=== PATIENT | male | born 1975 | race Caucasian/White ===

== ENCOUNTER 2020-08-18 15:48 | Outpatient (CLI) | payer OTHER, SELFPAY ==
[2020-08-18 16:12] LABS: Add Urine Microscopic? NO; Appearance Urine Clear (Clear); Basophils Absolute Auto 0.07 K/mm3 (0.00-0.10); Basophils Percent Auto 1.2 % (0.0-1.0); Bilirubin Urine Negative (Negative); Blood Urine Negative (Negative); Color Urine Yellow (Yellow); Eosinophils Absolute Auto 0.14 K/mm3 (0.02-0.50); Eosinophils Percent Auto 2.4 % (1.0-6.0); Glucose Urine UA Negative (Negative); Hematocrit 42.6 % (40.0-54.0); Hemoglobin 14.7 g/dL (14.0-18.0); Immature Granulocyte Absolute 0.02 K/mm3 (0.00-0.00); Immature Granulocyte Percent A 0.3 % (0.0-0.0); Ketones Urine Negative (Negative); Leukocyte Esterase Ur Negative (Negative); Lymphocytes Absolute Auto 1.87 K/mm3 (1.10-4.50); Lymphocytes Percent Auto 32.3 % (18.0-42.0); Mean Corpuscular HGB Conc 34.5 g/dL (32.0-36.0); Mean Corpuscular Hemoglobin 31.1 pg (27.0-31.0); Mean Corpuscular Volume 90.3 fL (78.0-102.0); Mean Platelet Volume 9.2 fl (8.7-11.0); Monocytes Absolute Auto 0.58 K/mm3 (0.10-0.90); Neutrophils Absolute Auto 3.1 K/mm3 (1.7-7.2); Neutrophils Percent Auto 53.8 % (50.0-70.0); Nitrate Urine Negative (Negative); Platelet Count Result 202 K/mm3 (150-420); Protein Urine Negative (Negative); Red Blood Count 4.72 M/mm3 (4.70-6.10); Red Cell Distribution Width 13.2 % (11.6-14.4); Specific Grav Ur 1.025 (1.010-1.020); Urobilinogen Urine 0.2 mg/dL (0.2-1.0); White Blood Count 5.8 K/mm3 (4.8-10.8)
[2020-08-18 17:40] LABS: Alanine Aminotransferase 24 U/L (16-63); Albumin Level 4.2 g/dL (3.4-5.0); Alkaline Phosphatase 57 U/L (46-116); Anion Gap 8 mmol/L (8-16); Aspartate Amino Transferase 30 U/L (15-37); Blood Urea Nitrogen 24 mg/dL (7-18); Calcium 8.8 mg/dL (8.5-10.1); Carbon Dioxide 28 mmol/L (21-32); Chloride 104 mmol/L (98-108); Cholesterol 199 mg/dL (0-200); Estimated Glomerular Filt Rate > 60; Glucose 80 mg/dL (70-99); HDL Direct 81 mg/dL (40-60); LDL Cholesterol Calculated 94 mg/dL (<130); Osmolality Calculated 293 mOsm/kg (285-295); Potassium 4.2 mmol/L (3.5-5.1); Sodium 140 mmol/L (136-145); Thyroid Stimulating Hormone 1.38 uIU/mL (0.36-3.74); Total Protein 7.3 g/dL (6.4-8.2); Triglycerides 122 mg/dL (0-150)
[2020-08-23 06:59] LABS: LH 2.9 mIU/mL (1.5-9.3)
[2020-08-23 14:59] LABS: Testosterone Free 57.2 pg/mL (35.0-155.0); Testosterone Total 318 ng/dL (250-1100)
== END 2020-08-18 15:49 | disposition home or self-care (01) ==
PROVIDERS: PCP Internal Medicine; Visit Provider Internal Medicine
DX: Z00.00 Encounter for general adult medical examination without abnormal findings (principal); R53.83 Other fatigue
CPT/HCPCS: 36415; 80053; 80061; 81003; 83002; 84402; 84403; 84443; 85025

== ENCOUNTER 2021-03-26 06:37 | Emergency (ER) | payer OTHER, SELFPAY ==
--- NOTE | ~2021-03-26 | CT_ITS ---
EXAMINATION: CT diagnostic chest wo con EXAM DATE: 03/26/2021 07:59 INDICATION: fall, back and rib pain, left leg numbness fall 3 days ago from 5ft, landed on back and L side-pain SOB . TECHNIQUE: Spiral CT of the chest without contrast. Axial, coronal and sagittal images of the chest were reviewed. Coronal maximum intensity pixel images of chest reviewed. The dose-length product ( DLP) for this examination was 526.87 mGy-cm. The exposure was tailored according to patient size (au to mA exposure control), and iterative reconstruction (ASIR) was used as additional dose reduction te chnique. There is no prior study for comparison. FINDINGS: There are acute nondisplaced left 8th and 9th rib fractures posteriorly. There is small lef t knee joint effusion. There is adjacent subsegmental atelectasis. Trace right pleural effusion. Tra cheobronchial tree is patent. There is no mediastinal, hilar or axillary lymphadenopathy. There i s no pneumothorax. Heart normal in size. No evidence of coronary arterial calcification. Fluid d ensity lesion superior pole right kidney measuring 2.5 cm, probably a cyst. There is mild thoracic s pondylosis without osteoblastic or osteolytic lesions identified. IMPRESSION: 1. Acute left 8th and 9th nondisplaced rib fractures. 2. Small left pleural effusion, adjacent subsegmental atelectasis. Reviewed, dictated and finalized at location D. LTY CHAIN MAKER
--- NOTE | ~2021-03-26 | CT_ITS ---
EXAMINATION: CT lumbar spine wo [facility] EXAM DATE: 03/26/2021 07:59 INDICATION: fall, back pain, left leg numbness fall 3 days ago from 5ft, landed on back and L side-pa in. TECHNIQUE: Spiral CT of the lumbar spine was performed without contrast. Axial, coronal and sagittal images lumbar spine were reviewed. The dose-length product (DLP) for this examination was 526.87 mG y-cm. The exposure was tailored according to patient size (auto mA exposure control), and iterative reconstruction (ASIR) was used as additional dose reduction technique. FINDINGS: There is moderate right neural foraminal stenosis at L4-5, otherwise only mild lumbar disc disease and arthropathy. There is no evidence of acute lumbar fracture. There is no disc space wide titus or traumatic vertebral body subluxation suspected. Paraspinal soft tissue is unremarkable. A de tailed level by level evaluation of spondylosis can be added as addendum if requested. IMPRESSION: 1. No acute lumbar findings. 2. L4-5 moderate right neural foraminal stenosis, less spondylosis other levels. Reviewed, dictated and finalized at location D. ENT ACCESS SPECIALIST IMPRESSION: 1. No acute lumbar findings. 2. L4-5 moderate right neural foraminal stenosis, less spondylosis other level s.
[2021-03-26 06:45] VITALS: BP 124/100; PULSE 76; RESP 18; TEMP 36.4; O2SAT 99
--- NOTE | 2021-03-26 07:03 | PC.NURSE ---
Report given to Mili Omalley
[2021-03-26 07:11] VITALS: BP 133/93
--- NOTE | 2021-03-26 07:18 | ED.FALL ---
HPI - Fall General Chief Complaint: Back Pain/Injury Stated Complaint: FELL THURSDAY BACK PAIN Time Seen by Provider: 03/26/21 07:18 Source: patient Mode of arrival: ambulatory Limitations: no limitations History of Present Illness HPI Narrative: 45-year-old man comes in today complaining of left-sided rib and back pain and numbness in his left leg that started 3 days ago after he fell off a 5 ft scaffolding onto his back. Patient states that he did not his head or lose consciousness nor did he have any symptoms such as lightheadedness, chest pain, weakness or dizziness prior to his fall. He denies previous back pain issues. he denies hemoptysis, productive cough, shortness of breath. He states he feels like some things grinding in his back when he moves. complaint: fall Onset (ago): day(s) (3) Fall from: from height (distance) (5 feet) Place fall occurred: other ( Outdoors) Loss of consciousness: none Prolonged down time: no Symptoms prior to fall: none Context: tripped/slipped Location of injury: chest and back Severity: severe Quality: sharp and aching Associated symptoms (after fall): denies Related Data Home Medications Medication Instructions Recorded Confirmed gabapentin 100 mg PO TID 03/26/21 03/26/21 Allergies Allergy/AdvReac Type Severity Reaction Status Date / Time No Known Allergies Allergy Verified 03/26/21 06:52 Review of Systems Review of Systems: All systems reviewed & are unremarkable except as noted in HPI and below ENT: Denies nasal congestion and Denies sore throat Cardiovascular: Cardiovascular: Reports chest pain and Denies radiating jaw, neck or arm pain Respiratory: Respiratory: Reports cough ( Recent respiratory infection with lingering cough), Denies dyspnea and Denies wheezing Gastrointestinal: Gastrointestinal: Denies abdominal pain, Denies nausea and Denies vomiting Genitourinary: Genitourinary: Denies hematuria and Denies urinary incontinence Musculoskeletal: Musculoskeletal: Reports back pain, Denies arthralgias and Denies joint swelling Integumentary/Breasts: Skin/Breast: Denies pruritus, Denies erythema and Denies rash PMFSH Social History Social History (Updated 03/26/21 @ 07:36 by Jhony Mccracken MD) Tobacco type: smokeless tobacco Substance use: never Exam Const: General: healthy appearing and alert Orientation/consciousness: patient oriented x3 Limitations: no limitations Other: moderate acute distress. Neck: Neck: normal visual inspection Other: No tenderness. Normal range of motion. Resp: Effort & Inspection: normal respiratory effort and not labored Auscultation: clear to auscultation bilaterally, no rales, no rhonchi, no wheezes and diminished lung sounds on the left in the upper lung ng Cardio: Rate: regular rate Rhythm: regular rhythm Back/Spine/Pelvis: Other: Tenderness to palpation of the left paraspinal muscles in the lower thoracic spine and of the posterior and lower ribs on the left. no crepitus. Skin: General skin exam: normal color, no jaundice and no pallor Rashes: no rashes Neuro: General: patient oriented x3, moves all extremities, no focal motor deficits and CN's II-XI intact bilaterally Speech: normal speech Gait exam (Neuro): Normal gait present Other: normal strength in the lower extremities without decrease in sensation. DTRs at the calcaneal and patellar tendons are 1+ and symmetric. Extrem: General: normal to inspection and no clubbing, cyanosis or edema Psych: Appearance: grossly normal and well kempt Mental Status: mental status grossly normal Affect: normal affect Attitude: cooperative Thought content: Yes Normal thought content present Course Vital Signs Vital signs: Vital Signs Temperature 36.4 C 03/26/21 06:45 Pulse Rate 76 03/26/21 06:45 Respiratory Rate 18 03/26/21 06:45 Blood Pressure 124/100 H 03/26/21 06:45 Pulse Oximetry 99 03/26/21 06:45 Temperature 36.4 C
[2021-03-26 07:36] LABS: Add Urine Microscopic? NO; Appearance Urine Clear (Clear); Bilirubin Urine Negative (Negative); Blood Urine Negative (Negative); Color Urine Light Yellow (Yellow); Glucose Urine UA Negative (Negative); Ketones Urine Negative (Negative); Leukocyte Esterase Ur Negative (Negative); Nitrate Urine Negative (Negative); Protein Urine Negative (Negative); Specific Grav Ur 1.015 (1.010-1.020); Urobilinogen Urine 0.2 mg/dL (0.2-1.0)
[2021-03-26 08:36] VITALS: BP 133/93; PULSE 76; RESP 18; TEMP 36.4; O2SAT 98
== END 2021-03-26 08:37 | disposition home or self-care (01) ==
PROVIDERS: Emergency Provider Emergency Medicine
DX: S22.42XA Multiple fractures of ribs, left side, initial encounter for closed fracture (principal); W12.XXXA Fall on and from scaffolding, initial encounter
CPT/HCPCS: 71250; 72131; 81003; 99283; 99284

== ENCOUNTER 2021-04-22 17:53 | Outpatient (NON) | payer OTHER, SELFPAY | END 2021-04-22 17:54 | disposition home or self-care (01) | LOC: CHSLAB 18:00 | DX: Z98.52 Vasectomy status (principal) | CPT/HCPCS: 89321 ==

== ENCOUNTER 2022-04-01 16:15 | Outpatient (CLI) | payer OTHER, SELFPAY ==
--- NOTE | ~2022-04-01 | XR_ITS ---
XR hip RT min 2V DATE: 04/01/2022 17:01 INDICATION: Right hip pain radiating down leg TECHNIQUE: AP and lateral views of right hip COMPARISON: None FINDINGS: No fracture or dislocation, avascular necrosis or bone destruction of the right hip. Right hip joint space is well preserved. The pubic symphysis and right sacroiliac joint are intact. IMPRESSION: Negative Reviewed, dictated and finalized at location A. CTOR OF CAMPUS RECREATION IMPRESSION: Negative
--- NOTE | ~2022-04-01 | XR_ITS ---
XR lumbar spine 2-3V DATE: 04/01/2022 17:01 INDICATION: Right gluteal pain, lower lumbar pain for 3 weeks TECHNIQUE: AP, lateral and coned lateral lumbosacral views COMPARISON: 03/26/2021 CT lumbar spine FINDINGS: There is mild levoscoliosis of the thoracolumbar spine. There is mild degenerative spurring of the lumbar vertebral bodies the lumbar and lumbosacral intersp aces are relatively preserved. No fracture or bone destruction is evident. T12-L5 pedicles are intact. No fracture or bone destructi on or spondylolisthesis. The sacroiliac joints are intact. IMPRESSION: Mild thoracolumbar levoscoliosis Mild degenerative spurring of the lumbar spine Reviewed, dictated and finalized at location A. OUND COATING MACHINE OFFBEARER
== END 2022-04-01 16:16 | disposition home or self-care (01) ==
LOC: CHSIMG 16:19
PROVIDERS: PCP Internal Medicine; Visit Provider Internal Medicine
DX: M25.551 Pain in right hip (principal); M41.85 Other forms of scoliosis, thoracolumbar region; M77.8 Other enthesopathies, not elsewhere classified
CPT/HCPCS: 72100; 73502

== ENCOUNTER 2023-02-12 07:57 | Emergency (ER) | payer OTHER, SELFPAY ==
--- NOTE | ~2023-02-12 | CT_ITS ---
EXAMINATION: CT abdomen pelvis w con DATE: 02/12/2023 09:21 INDICATION: Abdominal pain. Hematuria. TECHNIQUE: Computed tomography (CT) of the abdomen and pelvis was performed with 100 mL Omnipaque 350 intravenous contrast. Automated exposure control and iterative reconstruction technique were employe d. The dose-length product was 472.00 mGy-cm. COMPARISON: Chest CT 03/26/2021 FINDINGS: Calcified bilateral lung nodules are consistent with old granulomatous disease. No pleural effusion. The heart size is normal. No pericardial effusion. Calcifications in the liver consistent w ith old granulomatous disease. The spleen, gallbladder, pancreas, adrenal glands, and left kidney are normal. There is a 2.7 cm cyst in right kidney. There are no dilated bowel. The appendix is normal. There are no pathologically enlarged lymph nodes. There is no free intraperitoneal fluid. The bladder is distended. There is mild thoracolumbar spondylosis. There is mild chronic anterior wedging of T11 and T12 vertebral bodies. IMPRESSION: 1. No etiology for the patient's symptoms. Reviewed, dictated and finalized at location E.
[2023-02-12 08:00] VITALS: BP 161/107; PULSE 105; RESP 20; TEMP 36.7; O2SAT 95
[2023-02-12 08:33] LABS: Basophils Absolute Auto 0.09 K/mm3 (0.00-0.10); Basophils Percent Auto 1.4 % (0.0-1.0); Eosinophils Absolute Auto 0.07 K/mm3 (0.02-0.50); Eosinophils Percent Auto 1.1 % (1.0-6.0); Hematocrit 50.6 % (40.0-54.0); Hemoglobin 17.4 g/dL (14.0-18.0); Immature Granulocyte Absolute 0.01 K/mm3 (0.00-0.00); Immature Granulocyte Percent A 0.2 % (0.0-0.0); Lymphocytes Absolute Auto 2.25 K/mm3 (1.10-4.50); Lymphocytes Percent Auto 34.5 % (18.0-42.0); Mean Corpuscular HGB Conc 34.4 g/dL (32.0-36.0); Mean Corpuscular Hemoglobin 31.5 pg (27.0-31.0); Mean Corpuscular Volume 91.7 fL (78.0-102.0); Mean Platelet Volume 8.8 fl (8.7-11.0); Monocytes Absolute Auto 0.66 K/mm3 (0.10-0.90); Monocytes Percent Auto 10.1 % (2.0-11.0); Neutrophils Absolute Auto 3.5 K/mm3 (1.7-7.2); Neutrophils Percent Auto 52.7 % (50.0-70.0); Platelet Count Result 274 K/mm3 (150-420); Red Blood Count 5.52 M/mm3 (4.70-6.10); Red Cell Distribution Width 12.5 % (11.6-14.4); White Blood Count 6.5 K/mm3 (4.8-10.8)
[2023-02-12 08:38] LABS: Appearance Urine Clear (Clear); Bilirubin Urine Negative (Negative); Blood Urine Negative (Negative); Color Urine Yellow (Yellow); Glucose Urine UA Trace (Negative); Ketones Urine Negative (Negative); Leukocyte Esterase Ur Negative LEU/UL (Negative); Nitrate Urine Negative (Negative); Protein Urine Trace (Negative); Specific Grav Ur 1.025 (1.010-1.020); Urobilinogen Urine 0.2 mg/dL (0.2-1.0)
[2023-02-12 08:44] LABS: Add Urine Microscopic? YES; Bacteria Urine Trace /hpf; RBC Urine None seen /hpf (0-2); Squamous Epithelial Cell Urine Occasional /hpf (Few); WBC Urine None seen /hpf (0-3)
[2023-02-12 08:45] LABS: Mucus Urine Few /lpf
[2023-02-12] MEDS: ONDANSETRON INJ 4 MG/2 ML VIAL IV PUSH (08:46)
[2023-02-12] MEDS: KETOROLAC 30 MG/ML VIAL (*BKC) IV PUSH (08:47)
[2023-02-12] MEDS: SODIUM CHLORIDE 0.9% IV 1,000 ML 999 ML IV CONT (08:47)
[2023-02-12 08:52] LABS: Alanine Aminotransferase 60 U/L (16-63); Albumin Level 3.4 g/dL (3.4-5.0); Alkaline Phosphatase 49 U/L (46-116); Anion Gap 12 mmol/L (8-16); Aspartate Amino Transferase 54 U/L (15-37); Bilirubin,Total 0.7 mg/dL (0.00-1.00); Blood Urea Nitrogen 12 mg/dL (7-18); Calcium 8.5 mg/dL (8.5-10.1); Carbon Dioxide 25 mmol/L (21-32); Chloride 103 mmol/L (98-108); Estimated CRCL calculation 91 ml/min; Estimated Glomerular Filt Rate > 60; Glucose 96 mg/dL (70-99); Lipase 68 U/L (16-77); Osmolality Calculated 289 mOsm/kg (285-295); Potassium 3.8 mmol/L (3.5-5.1); Sodium 140 mmol/L (136-145); Total Protein 7.3 g/dL (6.4-8.2)
[2023-02-12] MEDS: THIAMINE HCL INJ 100 MG, FOLIC ACID 1 MG, MULTIVITAMINS-12 INJ 10 ML, MAGNESIUM SULFATE... IVPB (09:30)
--- NOTE | 2023-02-12 09:45 | ED.ABDPAIN ---
HPI - Abdominal Pain General Chief Complaint: Urogenital-Male Stated Complaint: alcoholism states peeing blood this am Time Seen by Provider: 02/12/23 08:03 Source: patient and family Mode of arrival: ambulatory Limitations: no limitations History of Present Illness HPI narrative: this is a 47-year-old male that presents with some history of alcohol abuse, presents with some abdominal pain and anxiety. Otherwise there is no shortness of breath no chest pain no fever chills no flank pain no hematuria no dysuria. Patient and states that he had an episode of hematuria but currently not having any blood in his urine no flank pain. The patient states that he has been on a 5 day binge of alcohol and wants help with his alcohol abuse. MD elicited complaint: abdominal pain Onset (ago): day(s) Pain Consistency: intermittent Location: diffuse Severity: moderate Quality: aching Migration to: no migration Exacerbating factors: nothing Relieving factors: nothing Related Data Home Medications Medication Instructions Recorded Confirmed gabapentin 100 mg capsule 100 mg PO TID 03/26/21 02/12/23 Allergies Allergy/AdvReac Type Severity Reaction Status Date / Time No Known Allergies Allergy Verified 02/12/23 08:14 Review of Systems Review of Systems: All systems reviewed & are unremarkable except as noted in HPI and below PMFSH Past Medical History Medical History Alcohol abuse Social History Social History Tobacco type: smokeless tobacco Substance use: never Exam Const: General: no acute distress Nutritional Appearance: well nourished Orientation/consciousness: patient oriented x3 Limitations: no limitations HENMT: Head: normal to inspection Eyes: Conjunctivae: conjunctivae normal Pupils: Equal, round and reactive pupils present EOM: EOMs intact bilaterally Neck: Neck: normal visual inspection Chest: Chest palpation & inspection: normal inspection of the chest Resp: Effort & Inspection: normal respiratory effort Auscultation: clear to auscultation bilaterally Cardio: Rate: regular rate Rhythm: regular rhythm GI: GI Palp: Yes Soft to palpation and Yes Tenderness to palpation present (GI) : General: Yes bladder normal to palpation Urinary Catheter: Urinary Catheter: patent and draining Back/Spine/Pelvis: Back: no CVA tenderness Skin: General skin exam: normal color Rashes: no rashes Neuro: General: patient oriented x3 and moves all extremities Cranial nerves: Yes Nystagmus not present Extrem: General: normal to inspection Psych: Affect: Anxious affect present Course Course Emergency Course: patient had a CT scan abdomen pelvis performed which shows no acute abnormalities, had blood work performed which were within normal limits. Patient did receive IV fluids, and had a banana bag that he refused to complete. Stating that he just wants to go home. Patient continues to feel anxious, and advised patient to follow-up with his primary care physician. Urinalysis shows no urinary tract infection no hematuria, no blood in his urine. Vital Signs Vital signs: Vital Signs Temperature 36.7 C 02/12/23 08:00 Pulse Rate 105 H 02/12/23 08:00 Respiratory Rate 20 02/12/23 08:00 Blood Pressure 161/107 H 02/12/23 08:00 Pulse Oximetry 95 02/12/23 08:00 Oxygen Delivery Room Air 02/12/23 08:00 Temperature 36.7 C 02/12/23 08:00 Pulse Rate 105 H 02/12/23 08:00 Respiratory Rate 20 02/12/23 08:00 Blood Pressure 161/107 H 02/12/23 08:00 Pulse Oximetry 95 02/12/23 08:00 Oxygen Delivery Room Air 02/12/23 08:00 MDM - Abdominal Pain Lab Data 02/12/23 08:28 02/12/23 08:28 Labs: Lab Results 02/12/23 02/12/23 Range/Units 08:21 08:28 WBC 6.5 (4.8-10.8) K/mm3 RBC 5.52 (4.70-6.10) M/mm3 Hgb 17.4 (14.0-18.0) g/dL Hct 50.6 (40.0-54.0) % MCV 91.7 (7
[2023-02-12 10:01] VITALS: BP 168/101; PULSE 92; RESP 20; TEMP 36.7; O2SAT 96
== END 2023-02-12 10:08 | disposition home or self-care (01) ==
PROVIDERS: Emergency Provider Emergency Medicine; PCP Family Medicine
DX: F10.20 Alcohol dependence, uncomplicated (principal); Z79.899 Other long term (current) drug therapy
CPT/HCPCS: 36415; 74177; 80053; 81001; 83690; 85025; 96361; 96365; 96375; 99284; J1885; J2405; J3411; J3475; J7030; Q9967

== ENCOUNTER 2023-04-24 11:19 | Emergency (ER) | payer OTHER, SELFPAY ==
[2023-04-24 11:19] VITALS: BP 180/97; PULSE 88; RESP 20; TEMP 36.6; O2SAT 100
--- NOTE | 2023-04-24 11:26 | PC.NURSE ---
Pt being verbally aggressive, pulling off monitor leads and agitated. Pt states I dont fucking trust you people. Im scared. Im so fucking paranoid. [place] GUTIÉRREZ at bedside attempting to redirect and deescalate pt. Pt now back in stretcher. [place] GUTIÉRREZ attempting to start IV and lab draw.
--- NOTE | 2023-04-24 11:38 | ECG_ITS ---
Measurements Intervals [place] Rate: 93 P: 48 KS: 142 QRS: 10 QRSD: 111 T: 45 QT: 370 QTc: 462 Interpretive Statements SINUS RHYTHM MINIMAL Q WAVES- HIGH LATERAL LEADS BORDERLINE ECG NO PREVIOUS ECG AVAILABLE FOR COMPARISON Electronically Signed On 04-24-2023 12:52:38 TOOL HONING MACHINE SET UP OPERATOR by Wes Gutierrez D.O.
--- NOTE | 2023-04-24 11:46 | PC.NURSE ---
This RN entered room and patient immediately became verbally aggressive, demanding food. This RN educated patient we have to check with physician orders before allowing patient's to eat. Pt stated what in your fucking mind would cause you to think like that . Attempted to deescalate patient. Pt started pulling off monitor cords stating oh I see how this is going to go followed by what did you come in here to do . Educated patient on performing an EKG and patient refused.
[2023-04-24 11:50] LABS: Basophils Absolute Auto 0.1 K/mm3 (0.0-0.1); Basophils Percent Auto 1.5 % (0.2-1.2); Eosinophils Percent Auto 0.2 % (0-4.4); Hematocrit 46.7 % (42.0-52.0); Immature Granulocyte Absolute 0.02 K/mm3 (0.00-0.031); Immature Granulocyte Percent A 0.3 % (0-0.5); Lymphocytes Absolute Auto 2.08 K/mm3 (0.9-3.2); Lymphocytes Percent Auto 34.5 % (18.3-44.2); Mean Corpuscular HGB Conc 34.3 g/dl (32-36); Mean Corpuscular Hemoglobin 32.4 pg (26-34); Mean Corpuscular Volume 94.5 fl (80-100); Mean Platelet Volume 8.8 fl (7.4-10.4); Monocytes Absolute Auto 0.6 K/mm3 (0.1-0.6); Neutrophils Absolute Auto 3.2 K/mm3 (1.3-6.7); Neutrophils Percent Auto 53.5 % (45.5-73.1); Platelet Count Result 210 k/mm3 (150-375); Red Blood Count 4.94 M/mm3 (4.6-6.20); Red Cell Distribution Width 13.8 % (11.5-14.5)
[2023-04-24 11:54] LABS: Appearance Urine Clear (Clear); Blood Urine Negative (Negative); Color Urine Yellow (Yellow); Glucose Urine UA Negative (Negative); Ketones Urine Negative (Negative); Protein Urine Negative (Negative)
[2023-04-24 11:55] LABS: Add Urine Microscopic? NO; Bilirubin Urine Negative (Negative); Leukocyte Esterase Ur Negative LEU/UL (Negative); Nitrate Urine Negative (Negative); Urobilinogen Urine 0.2 mg/dL (<2.0)
[2023-04-24 11:59] LABS: Alanine Aminotransferase 51 U/L (6-50); Albumin Level 4.6 g/dL (3.5-5.1); Alkaline Phosphatase 66 U/L (38-126); Anion Gap 15 mmol/L (8-16); Aspartate Amino Transferase 72 U/L (17-59); Bilirubin,Total 0.7 mg/dL (0.2-1.3); Blood Urea Nitrogen 6 mg/dL (9-20); Calcium 8.6 mg/dL (8.4-10.2); Carbon Dioxide 23 mmol/L (22-30); Chloride 104 mmol/L (98-107); Estimated CRCL calculation 126 ml/min; Estimated Glomerular Filt Rate > 60; Glucose 94 mg/dL (65-110); Potassium 3.9 mmol/L (3.4-5.0); Sodium 142 mmol/L (137-145)
[2023-04-24 12:02] LABS: INR 0.9; Prothrombin Time 12.7 Seconds (11.1-14.7)
[2023-04-24 12:06] LABS: Amphetamine Screen Urine Negative (Negative); Barbiturate Screen Urine Negative (Negative); Benzodiazepines Screen Urine Negative (Negative); Cannabinoid Screen Urine Negative (Negative); Cocaine Screen Urine Negative (Negative); Methadone Screen Urine Negative (Negative); Opiate Screen Urine Negative (Negative); Phencyclidine Screen Urine Negative (Negative)
[2023-04-24 12:24] LABS: Ethanol 348 mg/dL (<10)
--- NOTE | 2023-04-24 12:32 | PC.NURSE ---
Patient mother, Amauri, called requesting to talk to doctor. Stating patient needs terminal operations supervisor help or we will lose him . Reachable at [phone]
--- NOTE | 2023-04-24 14:21 | PC.NURSE ---
PT IN lOBBY, AWAITING A CAB TO TAKE HIM HOME. PT AMBULATORY WITH STEADY GAIT. PT VERBALIZED PLAN TO HAVE CAB TAKE HIM HOME. PT SPEAKING TO OTHER ON PHONE. PT DENIED THOUGHTS OF SELF HARM, STATES, JUST WANT TO GO HOME :
== END 2023-04-24 14:24 | disposition left against medical advice (07) ==
PROVIDERS: Emergency Medicine; Emergency Provider Emergency Medicine; PCP Family Medicine
DX: F10.239 Alcohol dependence with withdrawal, unspecified (principal); Y90.8 Blood alcohol level of 240 mg/100 ml or more
CPT/HCPCS: 36415; 80053; 80307; 81003; 85025; 85610; 85730; 93005; 99199

== ENCOUNTER 2023-05-21 15:25 | Outpatient (CLI) | payer OTHER, SELFPAY ==
--- NOTE | ~2023-05-21 | XR_ITS ---
EXAMINATION: XR shoulder RT min 2V INDICATION: Right shoulder pain TECHNIQUE: Four views of the right shoulder are submitted. COMPARISON: None FINDINGS: There are 4 mm of anterior positioning of the acromion relative to the distal clavicle on t he scapular Y view. There is mild osteoarthritis of the glenohumeral joint. Soft tissues are unremark able. IMPRESSION: 1. Possible mild AC separation. Reviewed, dictated and finalized at location L. STILE COLLECTOR
== END 2023-05-21 15:26 | disposition home or self-care (01) ==
LOC: CHSIMG 15:27
PROVIDERS: PCP Family Medicine; Visit Provider Family Medicine
DX: M79.601 Pain in right arm (principal)
CPT/HCPCS: 73030

== ENCOUNTER 2023-08-13 07:21 | Outpatient (CLI) | payer OTHER, SELFPAY ==
--- NOTE | ~2023-08-13 | MR_ITS ---
EXAMINATION: MR shoulder RT wo con DATE: 08/13/2023 08:27 INDICATION: Medicare of the right rotator cuff TECHNIQUE: Magnetic resonance imaging (MRI) of the right shoulder was performed without intravenous c ontrast. Sequences included axial PD-weighted FS FSE, coronal oblique PD-weighted FS FSE, coronal obl ique T2-weighted FS FSE, sagittal PD-weighted FS FSE, and sagittal T1-weighted SE. COMPARISON: None. FINDINGS: Coracoacromial arch: The acromion undersurface is curved in morphology (type II). Moderate-sized subacromial spur at the a ttachment of the normal coracoacromial ligament. Moderate acromioclavicular osteoarthritis. Rotator cuff: Full-thickness tear of the conjoined portion of the supraspinatus and infraspinatus tendons with the tear transition to partial-thickness articular sided tear of the distal portions of the more anterior supraspinatus and posterior infraspinatus tendons. The full-thickness portion of the tear measures a t least 1 cm AP with the tear margin retracted approximately 2 cm from the greater tuberosity footpla te positioned between the apex of the humeral head and the central aspect of the acromion. The AP reg ion of partial-thickness tearing near the footplate extends for approximately 3 cm AP and involves at least one half of the tendon thickness. There is severe tendinopathy with frayed appearance of the r esidual intact portion of the tendons. The teres minor tendon is normal. Moderate tendinopathy withou t tear of the subscapularis tendon. Normal rotator cuff muscle bulk and signal. Biceps tendon, glenoid labrum and glenohumeral cartilage: Long head of the biceps tendon is normal. There is degenerative tearing along the free edge of the po sterosuperior glenoid labrum. There is partial thickness chondral ulceration along the cephalad aspec t of the humeral head. Glenoid cartilage remains normal. Fluid: There is a small glenohumeral joint effusion with proportional extension of fluid into the long head biceps tendon sheath. There is additional fluid extending through the full-thickness rotator cuff tea r defect into the subacromial/subdeltoid bursa. No loose osteochondral bodies. Bones: Bone alignment is normal. No fracture or pathologic marrow replacing process. There is irregular natasha ical contour along the superior facet of the greater tuberosity likely related to rotator cuff diseas e. IMPRESSION: 1. Severe tendinopathy and partial-thickness articular sided tear of the supraspinatus and infraspina tus tendons with superimposed small full-thickness component of the tear involving the conjoined port ion of the tendons. 2. Additional moderate tendinopathy without tear of the subscapularis tendon. 3. Mild glenohumeral osteoarthritis with degenerative tearing along the posterosuperior glenoid labru m. 4. Moderate acromioclavicular osteoarthritis. Reviewed, dictated and finalized at location A. IMPRESSION: 1. Severe tendinopathy and partial-thickness articular sided tear of the supras pinatus and infraspinatus tendons with superimposed small full-thickness compon ent of the tear involving the conjoined portion of the tendons. 2. Additional moderate tendinopathy without tear of the subscapularis tendon. 3. Mild glenohumeral osteoarthritis with degenerative tearing along the postero superior glenoid labrum. 4. Moderate acromioclavicular osteoarthritis.
== END 2023-08-13 07:22 | disposition home or self-care (01) ==
LOC: CHSIMG 07:23
PROVIDERS: PCP Family Medicine; Visit Provider Nurse Practitioner Family
DX: M75.111 Incomplete rotator cuff tear or rupture of right shoulder, not specified as traumatic (principal); M67.813 Other specified disorders of tendon, right shoulder; M19.011 Primary osteoarthritis, right shoulder
CPT/HCPCS: 73221